=== PATIENT | male | born 1955 | race Caucasian/White ===

== ENCOUNTER → 2022-04-12 | Day surgery (SDC) | payer MEDICARE ==
[~2022-04-12] VITALS: Ht 180.3 cm; Wt 110.2 kg
[~2022-04-12] MED LIST: GLUCOSAMINE CH1 EACH PO; METOCLOPRAMIDE10 MG PO; MYSOLINE50 MG PO; PROPRANOLOL HC160 MG PO; PROTONIX 40MG T40 MG PO; ZOCOR40 MG PO
[2022-04-12 11:03] LABS: HCT 36.5 % (42.0-52.0); HGB 13.2 g/dl (13.2-18.0); MCHC 36.2 g/dL (32.0-36.0); MCV 96.8 fL (78.0-100.0); MPV 9.4 fL (6.0-9.5); RBC 3.77 M/uL (4.70-6.00); RDW 13.4 % (11.5-14.0); WBC 3.4 K/uL (4.0-10.5)
[2022-04-12 11:12] LABS: ALBUMIN 3.8 g/dL (3.4-5.0); BILIRUBIN - TOTAL 0.6 mg/dL (0.2-1.0); BUN/CREAT RATIO (CALC) 11.2 RATIO; CREATININE 0.89 mg/dL (0.67-1.17); GLOBULIN (CALCULATION) 3.2 g/dL; POTASSIUM 4.1 mmol/L (3.5-5.1)
== END | disposition home or self-care (01) ==
LOC: FAS 09:47
PROVIDERS: Surgery
DX: D61.818 Other pancytopenia (principal); I10 Essential (primary) hypertension; K21.9 Gastro-esophageal reflux disease without esophagitis; E78.5 Hyperlipidemia, unspecified; J44.9 Chronic obstructive pulmonary disease, unspecified; Z87.891 Personal history of nicotine dependence; Z79.899 Other long term (current) drug therapy
CPT/HCPCS: 36415; 80053; J1642; J2250; J2704; J7120